=== PATIENT | male | born 1990 | race Caucasian/White ===

== ENCOUNTER 2022-03-05 10:28 | Emergency (ER) | payer BC, SELFPAY ==
[2022-03-05 10:41] VITALS: BP 151/94; PULSE 107; RESP 18; TEMP 37.2; O2SAT 100
--- NOTE | 2022-03-05 12:35 | ED.GENADULT ---
HPI - General Adult General Chief complaint: Upper Respiratory Infection Stated complaint: Sore Throat History of Present Illness HPI narrative: 31 y/o male. PMHx None reported. Presents to ED today with acute complaints of sore throat, respectively > the past 48 hours. He tells me that he has been home with two children, positive for streptococcal sore throat. -No fevers. -No neck pain, dyspnea, dysphagia, involuntary drooling. -No cough, chest congestion. He reports only mild reliefs with home OTC remedies. No additional acute c/o upon PE. Related Data Allergies Allergy/AdvReac Type Severity Reaction Status Date / Time No Known Allergies Allergy Verified 03/05/22 10:30 Review of Systems Review of Systems: CONSTITUTIONAL: Denies fever, chills, sweats. EYES: Denies visual changes, redness, discharge. ENT: Denies rhinorrhea, congestion, otalgia. + Sore Throat. CARDIOVASCULAR: Denies chest pain, palpitations, edema. RESPIRATORY: Denies dyspnea, wheezing, cough Remainder of ROS has been reviewed: Negative. Exam Narrative: GENERAL: This is a well-nourished, well-developed adult, in no apparent distress. HEAD: normocephalic, atraumatic. EYES: PERRL. Sclera clear/white. EARS: External ears normal, auditory canals clear and without drainage, TMs normal. NOSE: External nose normal. Positive Rhinorrhea, no obstruction, nares patent. THROAT: Mucous membranes moist, posterior pharynx is erythematous w/exudative changes. No gross swelling or airway compromise. NECK: Neck supple, non-tender without lymphadenopathy, masses or thyromegaly. CARDIOVASCULAR: Regular rate and rhythm. RESPIRATORY: Clear to auscultation. Breath sounds equal bilaterally. GASTROINTESTINAL: Abdomen soft. SKIN: no suspicious lesions or rash. NEURO: Alert, active, and age appropriate. Course Course Level of Care: Express Care Visit Vital Signs Vital signs: Vital Signs Temperature 37.2 C 03/05/22 10:41 Pulse Rate 107 H 03/05/22 10:41 Respiratory Rate 18 03/05/22 10:41 Blood Pressure 151/94 H 03/05/22 10:41 Pulse Oximetry 100 03/05/22 10:41 Oxygen Delivery Room Air 03/05/22 10:41 Temperature 37.2 C 03/05/22 10:41 Pulse Rate 107 H 03/05/22 10:41 Respiratory Rate 18 03/05/22 10:41 Blood Pressure 151/94 H 03/05/22 10:41 Pulse Oximetry 100 03/05/22 10:41 Oxygen Delivery Room Air 03/05/22 10:41 Medical Decision Making MDM Narrative Medical decision making narrative: -Rapid Strep positive. -No hypoxemia, no airway concerns. -OP ATB as directed. -May resume all additional home & OTC remedies prn. -PCP F/U 1WK. -0ER W/Emergent status changes. Pt agrees. Differential Diagnosis Differential Diagnosis: Differential Diagnosis: Consideration of the following conditions may be warranted for the presenting problem, they are not final diagnoses: upper respiratory infection, otitis media, sinusitis, RSV viral infection, bronchitis, pharyngitis, Streptococcal sore throat, COVID-19, and other. Vital Signs Vital Signs: Vital Signs Temperature 37.2 C 03/05/22 10:41 Pulse Rate 107 H 03/05/22 10:41 Respiratory Rate 18 03/05/22 10:41 Blood Pressure 151/94 H 03/05/22 10:41 Pulse Oximetry 100 03/05/22 10:41 Oxygen Delivery Room Air 03/05/22 10:41 Temperature 37.2 C 03/05/22 10:41 Pulse Rate 107 H 03/05/22 10:41 Respiratory Rate 18 03/05/22 10:41 Blood Pressure 151/94 H 03/05/22 10:41 Pulse Oximetry 100 03/05/22 10:41 Oxygen Delivery Room Air 03/05/22 10:41 The patient has been informed that they may have pre-hypertension or Hypertension based on a BP reading in the clinic. It is recommended that the patient call the primary care provider listed on their discharge instructions or a physician of their choice as soon as possible (within 1-2week) to arrange follow up for further evaluation of possible pre-hypertension or hypertension. Lab Data Labs: Str
== END 2022-03-05 11:35 | disposition home or self-care (01) ==
PROVIDERS: Emergency Provider Nurse Practitioner Adult Health
DX: J02.0 Streptococcal pharyngitis (principal)
CPT/HCPCS: 87880; 99213; G0463